=== PATIENT | female | born 1940 | race Caucasian/White ===

== ENCOUNTER → 2017-08-04 | Outpatient (CLI) | payer MEDICARE, MEDICAID ==
--- NOTE | 2017-08-04 15:56 | RADIOLOGY REPORT (SQ) ---
EXAM DESCRIPTION: CT LUNG CANCER SCREENING COMPLETED DATE/TIME: 08/04/2017 10:35 am REASON FOR STUDY: PERSONAL HISTORY OF NICOTINE DEPENDENCE J44.9 CHRONIC OBSTRUCTIVE PULMONARY DISEA SE, UNSPECIFIED Z87.891 PERSONAL HISTORY OF NICOTINE DEPENDENCE Has the patient had a Chest CT scan within the past year? No Was the patient offered tobacco cessation counseling? Yes Was the patient engaged in shared decision making for this test? Yes Does the patient have signs or symptoms of Lung Cancer? No Is the patient a smoker? Yes How many packs per year? 730 How many years since quitting smoking? Not applicable Patients age: 76 COMPARISON: None. TECHNIQUE: Low Dose CT scan performed of the chest without intravenous contrast for purposes of scre ening for lung cancer. Images reviewed with lung, soft tissue and bone windows. Reconstructed coron al and sagittal MPR images reviewed. All images stored on PACS. All CT scanners at this facility use dose modulation, iterative reconstruction, and/or weight based d osing when appropriate to reduce radiation dose to as low as reasonably achievable (ALARA). [facility]: Dose Right [facility]: CareDose [facility]: Dose Right [facility]: Teradose 4D [facility]: [employer] RADIATION DOSE: CT Rad equipment meets quality standard of care and radiation dose reduction techniq ues were employed. CTDIvol: 1.9 mGy. DLP: 74 mGy-cm. mGy. . LIMITATIONS: None FINDINGS: LUNGS AND PLEURA: Linear bandlike scarring in the right lung apex coronal image 5/509. Bandlike scarring along the right superior edge major fissure coronal image 70/509. 6 mm nodule left upper lobe, smooth round contour, best shown on axial image 205/509. Less than 5 mm subpleural nodule posterior right upper lobe axial image 121/509. No pleural effusions or calcifications. No pneumothorax. No scarring or interstitial changes. The re are enlarged airspaces from centrilobular emphysema HILAR AND MEDIASTINAL STRUCTURES: No identified masses. No abnormal nodes. HEART AND VASCULAR STRUCTURES: No aortic aneurysm. No pericardial effusion. No cardiac devices. CORONARY ARTERY CALCIFICATIONS: Mild to moderate calcifications. UPPER ABDOMEN, THYROID, BONES, OTHER SOFT TISSUES: Very heavily calcified upper abdominal aorta, ques tion significant stenosis inferior to the renal arteries. Vertebra plana deformities at T5 and L1. The L1 level there is greater than 50% central canal narrowing. IMPRESSION: Multiple benign-appearing findings in the lungs on non contrasted chest CT Significant atherosclerotic change in the upper abdominal aorta and coronary arteries LUNGRADS: LUNGRADS: 2, benign findings. MODIFIER: NONE RECOMMENDATION: Continue annual screening with LDCT in 12 months. COMMENT: CRITERIA: No lung nodules. Nodules with specific calcifications: Complete, central, popcorn, concentric rings and fat containin g nodules. TECHNICAL DOCUMENTATION: JOB ID: [id number] Quality ID # [id number]: Final reports with documentation of one or more dose reduction techniques (e.g., Au tomated exposure control, adjustment of the mA and/or kV according to patient size, use of iterative reconstruction technique) 2010 [employer] [facility]
== END ==
LOC: RAD 10:13
PROVIDERS: ATTEND Internal Medicine
DX: Z12.2 Encounter for screening for malignant neoplasm of respiratory organs (principal); Z87.891 Personal history of nicotine dependence; J44.9 Chronic obstructive pulmonary disease, unspecified
CPT/HCPCS: G0297

== ENCOUNTER → 2019-05-18 | Outpatient (CLI) | payer MEDICARE, MEDICAID ==
--- NOTE | 2019-05-19 09:29 | RADIOLOGY REPORT (SQ) ---
EXAM DESCRIPTION: CT LUNG CANCER SCREENING COMPLETED DATE/TIME: 05/18/2019 1:31 pm REASON FOR STUDY: ENCTR FOR SCREENING FOR LUNG CA. (Z12.2) Z87.891 PERSONAL HISTORY OF NICOTINE DEP ENDENCE Has the patient had a Chest CT scan within the past year? N Was the patient offered tobacco cessation counseling? Y Was the patient engaged in shared decision making for this test? Y Does the patient have signs or symptoms of Lung Cancer? N Is the patient a smoker? Y How many pack years? 50 How many years since quitting smoking? 0 Patients age: 78 COMPARISON: 08/04/2017 TECHNIQUE: Low Dose CT scan performed of the chest without intravenous contrast for purposes of scre ening for lung cancer. Images reviewed with lung, soft tissue and bone windows. Reconstructed coron al and sagittal MPR images reviewed. All images stored on PACS. All CT scanners at this facility use dose modulation, iterative reconstruction, and/or weight based d osing when appropriate to reduce radiation dose to as low as reasonably achievable (ALARA). [facility]: Dose Right [facility]: CareDose [facility]: Dose Right [facility]: Teradose 4D [facility]: [employer] RADIATION DOSE: mGy. . LIMITATIONS: No technical limitations. FINDINGS: LUNG NODULES: Description: Pleural-based nodule in the right upper lobe. Best demonstra rob on series 3, image 54 Size: 4.1 mm. This is stable from prior study. 5.1 mm nodule in the left upper lobe best demonstrated on series 3, image 1 L5. This is also unchanged. REMAINING LUNGS AND PLEURA: No pleural effusions or calcifications. No pneumothorax. Stable sca rring along the left major fissure. There is scarring in the right lung apex. There are bilateral e mphysematous changes. HILAR AND MEDIASTINAL STRUCTURES: Occasional small mediastinal node. No pathologic adenopathy. HEART AND VASCULAR STRUCTURES: No aortic aneurysm. No pericardial effusion. No cardiac devices. CORONARY ARTERY CALCIFICATIONS: Moderate coronary artery calcifications. UPPER ABDOMEN, THYROID, BONES, OTHER SOFT TISSUES: No significant findings. IMPRESSION: BENIGN FINDINGS IN THE LUNGS. BILATERAL EMPHYSEMATOUS CHANGES. LUNGRADS: LUNGRADS: 2 BENIGN APPEARANCE OR BEHAVIOR. NODULES WITH A VERY LOW LIKELIHOOD OF BECOMING A CLINICALLY ACTIVE CANCER DUE TO SIZE OR LACK OF GROWTH. MODIFIER: NONE. RECOMMENDATION: Continue annual screening with LDCT in 12 months. COMMENT: CRITERIA: Solid nodule(s): < 6 mm; new < 4 mm. Part solid nodule(s): < 6 mm total diameter on baseline screening. Non solid nodule(s) (GGN): < 20 mm OR ? 20 and unchanged or slowly growing. Category 3 or 4 modules unchanged for ? 3 months. TECHNICAL DOCUMENTATION: JOB ID: [id number] Quality ID # 436: Final reports with documentation of one or more dose reduction techniques (e.g., Au tomated exposure control, adjustment of the mA and/or kV according to patient size, use of iterative reconstruction technique) 2010 [facility] Reading location - IP/workstation name: [email or web address]-
== END ==
LOC: RAD 13:07
PROVIDERS: ATTEND Internal Medicine
DX: Z12.2 Encounter for screening for malignant neoplasm of respiratory organs (principal); I25.10 Atherosclerotic heart disease of native coronary artery without angina pectoris; Z87.891 Personal history of nicotine dependence; R91.8 Other nonspecific abnormal finding of lung field
CPT/HCPCS: G0297

== ENCOUNTER → 2019-05-20 | Outpatient (CLI) | payer MEDICARE, MEDICAID ==
--- NOTE | 2019-05-20 11:27 | WOMENS IMAGING REPORT ---
EXAM DESCRIPTION: BILAT DIAGNOSTIC MAMMO W/CAD; U/S BREAST UNILAT LIMITED COMPLETED DATE/TIME: 05/20/2019 10:30 am; 05/20/2019 10:54 am REASON FOR STUDY: N63.0 UNSPECIFIED LUMP IN UNSPECIFIED BREAST; N63.0 RIGHT BREAST N63.10 UNSPECIFI ED LUMP IN THE RIGHT BREAST, UNSPECIFIED PANCHO COMPARISON: None. EXAM PARAMETERS: Standard craniocaudal and mediolateral oblique views of each breast recorded using digital acquisition. True lateral and cone compression views right breast. Read with the assistance of CAD: .[facility] - R2 Clinical Research Specialist Version 9.2 LIMITATIONS: None. FINDINGS: RIGHT BREAST MASSES: No suspicious masses. CALCIFICATIONS: No new or suspicious calcifications. ARCHITECTURAL DISTORTION: None. ASYMMETRY: None noted. OTHER: No other significant findings. LEFT BREAST MASSES: No suspicious masses. CALCIFICATIONS: No new or suspicious calcifications. ARCHITECTURAL DISTORTION: None. ASYMMETRY: None noted. OTHER: No other significant finding. Ultrasound of the right breast was normal. IMPRESSION: No evidence of malignancy. BREAST DENSITY: b. There are scattered areas of fibroglandular density. BIRAD: ASSESSMENT: 1 Negative. RECOMMENDATION: RECOMMENDED FOLLOW UP: Birads 1 or 2: No breast imaging finding to explain the patie nt's presenting complaint. Further intervention should be based on the degree of clinical suspicion. SPECIFIC INTERVENTION/IMAGING/CONSULTATION RECOMMENDED:No additional intervention/ imaging/consultati on needed at this time. COMMUNICATION:The imaging findings were not discussed with the patient. Her referring provider has be en notified of the findings. COMMENT: The patient has been notified of the results by letter per SA requirements. Additional no tification policies are in place for contacting patient with suspicious or incomplete findings. Quality ID #225: The [employer] recommends an annual screening mammogram for women aged 40 years or over. This facility utilizes a reminder system to ensure that all patients receive reminder letters, and/or direct phone calls for appointments. This includes reminders for routine scr eening mammograms, diagnostic mammograms, or other Breast Imaging Interventions when appropriate. Th is patient will be placed in the appropriate reminder system. TECHNICAL DOCUMENTATION: FINDING NUMBER: (1) ASSESSMENT: (1) JOB ID: [id number] [employer]- All Rights Reserved Reading location - IP/workstation name: [email or web address]
--- NOTE | 2019-05-20 11:27 | WOMENS IMAGING REPORT ---
EXAM DESCRIPTION: BILAT DIAGNOSTIC MAMMO W/CAD; U/S BREAST UNILAT LIMITED COMPLETED DATE/TIME: 05/20/2019 10:30 am; 05/20/2019 10:54 am REASON FOR STUDY: N63.0 UNSPECIFIED LUMP IN UNSPECIFIED BREAST; N63.0 RIGHT BREAST N63.10 UNSPECIFI ED LUMP IN THE RIGHT BREAST, UNSPECIFIED PANCHO COMPARISON: None. EXAM PARAMETERS: Standard craniocaudal and mediolateral oblique views of each breast recorded using digital acquisition. True lateral and cone compression views right breast. Read with the assistance of CAD: .[facility] - R2 Intermediate Teacher Version 9.2 LIMITATIONS: None. FINDINGS: RIGHT BREAST MASSES: No suspicious masses. CALCIFICATIONS: No new or suspicious calcifications. ARCHITECTURAL DISTORTION: None. ASYMMETRY: None noted. OTHER: No other significant findings. LEFT BREAST MASSES: No suspicious masses. CALCIFICATIONS: No new or suspicious calcifications. ARCHITECTURAL DISTORTION: None. ASYMMETRY: None noted. OTHER: No other significant finding. Ultrasound of the right breast was normal. IMPRESSION: No evidence of malignancy. BREAST DENSITY: b. There are scattered areas of fibroglandular density. BIRAD: ASSESSMENT: 1 Negative. RECOMMENDATION: RECOMMENDED FOLLOW UP: Birads 1 or 2: No breast imaging finding to explain the patie nt's presenting complaint. Further intervention should be based on the degree of clinical suspicion. SPECIFIC INTERVENTION/IMAGING/CONSULTATION RECOMMENDED:No additional intervention/ imaging/consultati on needed at this time. COMMUNICATION:The imaging findings were not discussed with the patient. Her referring provider has be en notified of the findings. COMMENT: The patient has been notified of the results by letter per SA requirements. Additional no tification policies are in place for contacting patient with suspicious or incomplete findings. Quality ID #225: The [employer] recommends an annual screening mammogram for women aged 40 years or over. This facility utilizes a reminder system to ensure that all patients receive reminder letters, and/or direct phone calls for appointments. This includes reminders for routine scr eening mammograms, diagnostic mammograms, or other Breast Imaging Interventions when appropriate. Th is patient will be placed in the appropriate reminder system. TECHNICAL DOCUMENTATION: FINDING NUMBER: (1) ASSESSMENT: (1) JOB ID: [id number] [employer]- All Rights Reserved Reading location - IP/workstation name: [email or web address]
== END ==
LOC: WI 09:45
PROVIDERS: ATTEND Internal Medicine
DX: N63.10 Unspecified lump in the right breast, unspecified quadrant (principal)
CPT/HCPCS: 76642; 77066

== ENCOUNTER → 2019-05-27 | Outpatient (CLI) | payer MEDICARE, MEDICAID ==
--- NOTE | 2019-05-27 16:04 | WOMENS IMAGING REPORT ---
EXAM DESCRIPTION: RIGHT DIAGNOSTIC MAMMO W/CAD COMPLETED DATE/TIME: 05/27/2019 9:26 am REASON FOR STUDY: N63.11 N63.11 UNSPECIFIED LUMP IN THE RIGHT BREAST, UPPER OUTER PANCHO COMPARISON: Diagnostic mammograms and ultrasound 05/20/2019 EXAM PARAMETERS: Standard craniocaudal and mediolateral oblique images of the breast recorded with d igital acquisition. Patient had an outpatient ultrasound-guided biopsy by Dr. Chantel Reynolds for a palpable abnormality. Read with the assistance of CAD. .[facility] - R2 Instructor Creeler Version 9.2 LIMITATIONS: None. FINDINGS: BREAST LATERALITY: Right MASSES: In the right breast laterally caps, about 3 cm from the nipple, a spiculated mammographic mas s is present with a biopsy clip present. CALCIFICATIONS: No new or suspicious calcifications. ARCHITECTURAL DISTORTION: None. ASYMMETRY: None noted. OTHER: No other significant findings. IMPRESSION: Biopsy clip is now present in a spiculated mass right breast retroareolar region lateral ly. 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 The breasts are heterogeneously dense, which may obscure small masses. BIRAD: ASSESSMENT: 6 Known biopsy-proven malignancy. Surgical excision when clinically appropriate. RECOMMENDATION: RECOMMENDED FOLLOW UP: As per Dr. Reynolds SPECIFIC INTERVENTION/IMAGING/CONSULTATION RECOMMENDED:As per Dr Reynolds COMMUNICATION:Patient notified by letter COMMENT: The patient has been notified of the results by letter per MQSA requirements. Additional no tification policies are in place for contacting patient with suspicious or incomplete findings. Quality ID #225: The [employer] recommends an annual screening mammogram for women aged 40 years or over. This facility utilizes a reminder system to ensure that all patients receive reminder letters, and/or direct phone calls for appointments. This includes reminders for routine scr eening mammograms, diagnostic mammograms, or other Breast Imaging Interventions when appropriate. Th is patient will be placed in the appropriate reminder system. TECHNICAL DOCUMENTATION: FINDING NUMBER: (1) ASSESSMENT: (1) JOB ID: [id number] [employer]- All Rights Reserved Reading location - IP/workstation name: [email or web address]
== END ==
LOC: WI 09:25
PROVIDERS: ATTEND Surgery
DX: N63.11 Unspecified lump in the right breast, upper outer quadrant (principal)
CPT/HCPCS: 77065

== ENCOUNTER → 2019-06-25 | Outpatient (CLI) | payer MEDICARE, MEDICAID ==
--- NOTE | 2019-06-25 08:19 | WOMENS IMAGING REPORT ---
EXAM DESCRIPTION: BONE DENSITY HIP/SPINE COMPLETED DATE/TIME: 06/25/2019 8:06 am REASON FOR STUDY: M81.0 BONE DENSITY M81.0 AGE-RELATED OSTEOPOROSIS W/O CURRENT PATHOLOGICAL FRAC COMPARISON: None. TECHNIQUE: Dual-Energy X-ray Absorptiometry (DEXA) of the AP Spine and Hip. LIMITATIONS: None. FINDINGS: LUMBAR SPINE: The bone mineral density (BMD) measured from L1-L4 in the AP projection correlates with a T-score of -0.3, which is normal as defined by the World Health Organization. HIP: The bone mineral density (BMD) measured in the left hip correlates with a T-score of -1.6, which is o steopenia as defined by the World Health Organization. IMPRESSION: 1. LUMBAR SPINE: NORMAL. 2. HIP: OSTEOPENIA. COMMENT: The World Health Organization defines low BMD as follows: T-score: Normal: Greater than -1.0 Osteopenia: Between -1.0 and -2.5 Osteoporosis: Less than -2.5 without fractures Established osteoporosis: Less than -2.5 with fractures In general, you may wish to consider: Diagnosis Treatment Follow-up DEXA Normal BMD Prevention 2-3 years Osteopenia Prevention/Therapy 1-2 years Osteoporosis Therapy Yearly TECHNICAL DOCUMENTATION: JOB ID: [id number] [employer]- All Rights Reserved Reading location - IP/workstation name: [email or web address]
== END ==
LOC: WI 07:40
PROVIDERS: ATTEND Internal Medicine
DX: M81.0 Age-related osteoporosis without current pathological fracture (principal)
CPT/HCPCS: 77080

== ENCOUNTER → 2019-07-02 | Outpatient (CLI) | payer MEDICARE, MEDICAID ==
--- NOTE | 2019-07-02 09:27 | RADIOLOGY REPORT (SQ) ---
EXAM DESCRIPTION: CT CHEST WITH COMPLETED DATE/TIME: 07/02/2019 8:28 am REASON FOR STUDY: BREAST CA (C50.311) C50.311 MALIG NEOPLM OF LOWER-INNER QUADRANT OF RIGHT FEMALE COMPARISON: CT of the chest without contrast from 05/18/2019. TECHNIQUE: CT scan of the chest performed using helical scanning technique with dynamic intravenous contrast injection. Images reviewed with lung, soft tissue and bone windows. Reconstructed coronal and sagittal MPR and MIP images reviewed. All images stored on PACS. All CT scanners at this facility use dose modulation, iterative reconstruction, and/or weight based d osing when appropriate to reduce radiation dose to as low as reasonably achievable (ALARA). [facility]: Dose Right [facility]: CareDose [facility]: Dose Right [facility]: Teradose 4D [facility]: Closely CONTRAST TYPE AND DOSE: 41 mL Omnipaque 350- low osmolar. RENAL FUNCTION: Creatinine 0.4 milligrams/deciliter RADIATION DOSE: DLP 548.78 mGy cm. LIMITATIONS: None FINDINGS: LUNGS AND PLEURA: There is severe centrilobular emphysema. There is an new pulmonary cavi ty in the superior segment of the right lower lobe (image 63 of series 6) that measures approximately 2.8 cm in AP diameter and 1.8 cm in transverse diameter and is associated with thickening of the int erlobular septa and adjacent pleura. The parenchymal band in the right upper lobe is unchanged. The re is no consolidation, ground-glass opacification, pleural effusion or nodule. HILAR AND MEDIASTINAL STRUCTURES: No mediastinal or hilar adenopathy. HEART AND VASCULAR STRUCTURES: The ascending thoracic aorta measures 3.5 x 3.5 cm (transverse x AP di ameters). There is dense atherosclerotic calcification of the thoracic aorta without aneurysm or dis section. The heart is normal in size. There is severe atherosclerotic calcification of the coronary arteries and mitral annulus. There is no pericardial effusion. The pulmonary arteries are prominen t and measure up to 2.6 cm in transverse - correlate clinically for pulmonary hypertension. There ar e no filling defects within the main, right and left pulmonary arteries. HARDWARE: None in the chest. UPPER ABDOMEN: Refer to the separate report of the CT of the abdomen. THYROID AND OTHER SOFT TISSUES: The patient is status post right mastectomy and axillary lymph node d issection. There is a postoperative collection in the anterior right hemithorax that measures up to 4.3 x 1 cm (transverse x AP). There are lymph nodes in the right axilla posterior to the surgical cl ips that measure 10 x 4 mm ; there are also lymph nodes in the left axilla that measure up to 12 x 8 mm. There is no enlarged supraclavicular adenopathy. The lobes of the thyroid gland are homogeneous . BONES: There are chronic compression fractures of the T5, T8, T12, L1, L2 and L3 vertebral bodies ; t he L1 fracture is associated with retropulsion of the posterior fragment into the spinal canal and fo cedric kyphotic angulation of the thoracolumbar spine. There is no acute fracture or osteolytic/osteobl astic osseous lesion. OTHER: No other finding. IMPRESSION: 1. New pulmonary cavity in the superior segment of the right lower lobe (image 63 of se joelle 6) that is associated with thickening of the interlobular septae in adjacent pleural. The etiol ogies for pulmonary cavities include cancer including cavitary pulmonary metastases, granulomas from an autoimmune process, bland and septic pulmonary emboli and infection including pulmonary tuberculos is. Correlation with clinical findings and a follow-up CT in 3 to 6 months is recommended. 2. Status post right mastectomy with a postoperative collection at the mastectomy site that measures up to 4.3 x 1 cm. There are lymph nodes in the right axilla posterior to the surgical clips that m easure 10 x 4 mm ; there are also lymph nodes in the left axilla at that measure up to 12 x 8 mm. Th ere is no supraclavicular or mediastinal/thoracic adenopathy. 3. Chronic compression fractures of the T5, T8, T12, L1, L2 and L3 vertebral bodies as detailed abov e. There is no acute fracture or osteolytic/osteoblastic osseous lesion on CT and correlation with th e finding on the Bone Scan is recommended to excluded osseous metastases. TECHNICAL DOCUMENTATION: JOB ID: [id number] Quality ID # [id number]: Final reports with documentation of one or more dose reduction techniques (e.g., Au tomated exposure control, adjustment of the mA and/or kV according to patient size, use of iterative reconstruction technique) 2010 [employer]- All Rights Reserved Reading location - IP/workstation name: [email or web address]
--- NOTE | 2019-07-02 09:52 | RADIOLOGY REPORT (SQ) ---
EXAM DESCRIPTION: CT ABD/PELVIS WITH IV ONLY COMPLETED DATE/TIME: 07/02/2019 8:28 am REASON FOR STUDY: BREAST CA (C50.311) C50.311 MALIG NEOPLM OF LOWER-INNER QUADRANT OF RIGHT FEMALE COMPARISON: None. TECHNIQUE: CT scan of the abdomen and pelvis performed using helical scanning technique with dynamic intravenous contrast injection. No oral contrast. Images reviewed with lung, soft tissue, and bone windows. Reconstructed coronal and sagittal MPR images reviewed. Delayed images for evaluation of the urinary system also acquired. All images stored on PACS. All CT scanners at this facility use dose modulation, iterative reconstruction, and/or weight based d osing when appropriate to reduce radiation dose to as low as reasonably achievable (ALARA). [facility]: Dose Right [facility]: CareDose [facility]: Dose Right [facility]: Teradose 4D [facility]: [employer] CONTRAST TYPE AND DOSE: Contrast/concentration: Isovue 350.00 mg/ml; Total Contrast Delivered: 41.0 ml; Total Saline Delivered: 65.0 ml RENAL FUNCTION: Creatinine 0.4 milligrams/deciliter. RADIATION DOSE: CT Rad equipment meets quality standard of care and radiation dose reduction techniq ues were employed. CTDIvol: 4.4 - 4.5 mGy. DLP: 549 mGy-cm. LIMITATIONS: None. FINDINGS: LOWER CHEST: Refer to the separate report of the CT of the chest. LIVER: The morphology of the liver is non cirrhotic. There are several hypodense lesions in the live r that measure up to 1.8 x 1.5 cm ; the aforementioned 1.8 x 1.5 cm in segment 6 of the liver (image 26 of series 3) and the 1.2 x 1 cm lesion in segment 5 (image 28 of series 3) measure water attenuati on and could represent cysts ; the other subcentimeter lesions in segment 3 (image 18 of series 3), s egment 5 (image 24 of series 3) and segment 4B (image 19 of series 3) could also represent cysts burnham jonathan evaluation of these lesions is limited due to size. The portal veins are patent. There is mild dilatation of the intrahepatic ducts at the alexy hepatis. SPLEEN: No splenomegaly or splenic mass. PANCREAS: No acute abnormality. GALLBLADDER: Cholelithiasis. There is a 6 x 4 mm calculus within the CBD upstream of the ampulla (im age 26 of series 3 and 40 of series 604). The proximal CBD is prominent and it measures up to 5 mm i n diameter. ADRENAL GLANDS: No mass or asymmetry. RIGHT KIDNEY AND URETER: No solid masses. No calcifications. No hydronephrosis or hydroureter. LEFT KIDNEY AND URETER: No solid masses. No calcifications. No hydronephrosis or hydroureter. AORTA AND VESSELS: Dense atherosclerotic calcification of the abdominal aorta and iliac arteries with out aneurysm or dissection; there are suspected stenoses of the proximal SMA, left renal artery and b oth common iliac arteries. The left gonadal vein is enlarged and there are prominent parametrial ves sels on the left side; these findings are nonspecific but are typical in the setting of pelvic conges tion syndrome. RETROPERITONEUM: No retroperitoneal adenopathy, hemorrhage or mass. BOWEL AND PERITONEAL CAVITY: No bowel obstruction, bowel wall thickening, or pericolonic/ perienteric inflammation. No mesenteric adenopathy, free and extraperitoneal fluid, or mesenteric/ omental infl ammation. APPENDIX: Unable to visualize the appendix. PELVIS: No gross abnormality. ABDOMINAL WALL: Mild anasarca. BONES: Osteopenia with chronic fracture deformities of the L1, L2 and L3 vertebral bodies. There is no acute fracture or osteolytic/ osteoblastic lesion. OTHER: Diverticulosis without diverticulitis. IMPRESSION: 1. Choledocholithiasis with mild upstream dilatation of the intra- and extrahepatic sarath e ducts. Correlate clinically with serum alkaline phosphatase to determine the need for further eval uation/intervention. 2. Hypodense hepatic lesions that measure up to 1.8 x 1.5 cm; as described above, based on the inter nal attenuation of the dominant lesions in segments 6 and 5 of the liver the favored differential con sideration is hepatic cysts - continued attention on follow-up CTs is recommended. 3. Other secondary findings as detailed above. TECHNICAL DOCUMENTATION: JOB ID: [id number] Quality ID # [id number]: Final reports with documentation of one or more dose reduction techniques (e.g., Au tomated exposure control, adjustment of the mA and/or kV according to patient size, use of iterative reconstruction technique) 2010 [employer]- All Rights Reserved Reading location - IP/workstation name: [email or web address]
--- NOTE | 2019-07-05 08:33 | RADIOLOGY REPORT (SQ) ---
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 The route of agent administration: Intravenous. ADDITIONAL DRUGS AND DOSES: None. TECHNIQUE: Routine delayed images at 3 hours post radionuclide injection acquired of the bony skelet on including anterior and posterior whole-body projections and additional focused images as needed. LIMITATIONS: None. FINDINGS: BONES: Focal increased uptake is present along the right medial clavicle left sternoclavic ular joint, correlating with a healing fracture on CT exam 07/02/2019. This is new compared to prior CT chest 05/18/2019. Patient has a T5 compression deformity without metabolically increased uptake on bone scan. Mild increased uptake is present along sclerotic vertebral body compression fractures at T8, T12, and L1. There is activity over the left ischium, likely contamination on patient's skin from urine. Bones ap pear to be intact on CT exam 07/02/2019. KIDNEYS: Symmetric excretion without obstruction. OTHER: No other significant finding. IMPRESSION: Healing subacute fracture medial right clavicle at the sternoclavicular joint Mild of uptake in subacute to chronic appearing thoracic and lumbar compression deformities Probable contamination from urinary activity over the left ischium soft tissues COMMENT: Quality measure 147: Current bone scan is compared with any available plain radiographs, p rior bone scans, and CT/MRI. TECHNICAL DOCUMENTATION: JOB ID: [id number]- All Rights Reserved Reading location - IP/workstation name: [email or web address]
== END ==
LOC: RAD 07:39
PROVIDERS: ATTEND Internal Medicine
DX: C50.311 Malignant neoplasm of lower-inner quadrant of right female breast (principal); C78.01 Secondary malignant neoplasm of right lung; M48.55XD Collapsed vertebra, not elsewhere classified, thoracolumbar region, subsequent encounter for fracture with routine healing; J43.2 Centrilobular emphysema; K80.50 Calculus of bile duct without cholangitis or cholecystitis without obstruction
CPT/HCPCS: 82565; 78306; 71260; 74177; A9561; Q9969

== ENCOUNTER 2019-08-22 18:05 | Emergency (ER) | payer MEDICARE, MEDICAID ==
[2019-08-22] MEDS ORDERED: ONDANSETRON HCL INJ/PF 4 MG/2 ML SDV IV ONE (18:12)
[2019-08-22 18:39] LABS: ABSOLUTE BASOPHILS # (AUTO) 0.1 10^3/uL (0.0-0.2); ABSOLUTE EOSINOPHILS # (AUTO) 0.1 10^3/uL (0.0-0.6); ABSOLUTE MONOCYTES (AUTO) 0.8 10^3/uL (0.1-1.4); ABSOLUTE NEUT (AUTO) 4.9 10^3/uL (1.7-8.2); EOSINOPHILS % (AUTO) 1.2 % (0-6); HEMATOCRIT 31.2 % (36.0-47.0); HEMOGLOBIN 10.9 g/dL (12.0-15.5); LYMPHOCYTES % (AUTO) 14.2 % (13-45); MEAN CORPUSCULAR HEMOGLOBIN 36.9 pg (27.0-33.4); MEAN CORPUSCULAR HGB CONC 34.8 g/dL (32.0-36.0); MEAN CORPUSCULAR VOLUME 106 fl (80-97); MONOCYTES % (AUTO) 11.5 % (3-13); PLATELET COUNT 429 10^3/uL (150-450); RED BLOOD COUNT 2.95 10^6/uL (3.72-5.28); RED CELL DISTRIBUTION WIDTH 23.7 % (11.5-14.0); SEGMENTED NEUTROPHILS % (AUTO) 72.1 % (42-78); TOTAL CELLS COUNTED % (AUTO) 100 %; WHITE BLOOD COUNT 6.7 10^3/uL (4.0-10.5)
[2019-08-22 18:55] LABS: APPEARANCE,URINE CLEAR; BILIRUBIN,URINE NEGATIVE (NEGATIVE); COLOR,URINE YELLOW; GLUCOSE, URINE NEGATIVE (NEGATIVE); KETONES,URINE 20 mg/dL (NEGATIVE); LEUKOCYTE ESTERASE,URINE NEGATIVE (NEGATIVE); NITRITE,URINE NEGATIVE (NEGATIVE); PROTEIN,URINE NEGATIVE (NEGATIVE); URINE SPECIFIC GRAVITY 1.011
[2019-08-22 18:56] LABS: ALBUMIN 3.7 g/dL (3.5-5.0); ALKALINE PHOSPHATASE 60 U/L (38-126); ANION GAP 9 (5-19); ASPARTATE AMINO TRANSFERASE 28 U/L (14-36); BILIRUBIN,DIRECT 0.3 mg/dL (0.0-0.4); BLOOD UREA NITROGEN 12 mg/dL (7-20); CALCIUM 8.8 mg/dL (8.4-10.2); CARBON DIOXIDE 29 mmol/L (22-30); CHLORIDE 88 mmol/L (98-107); GLUCOSE 97 mg/dL (75-110); TOTAL PROTEIN 7.6 g/dL (6.3-8.2)
[2019-08-22 18:58] LABS: ANISOCYTOSIS 3+; OVALOCYTES SLIGHT; PLATELET COMMENT ADEQUATE; POIKILOCYTOSIS 1+; TARGET CELLS 1+
--- NOTE | 2019-08-22 20:18 | ER Document Report ---
ED General - General Chief Complaint: Altered Mental Status Stated Complaint: VOMITING/CONFUSION Time Seen by Provider: 08/22/19 19:43 Primary Care Provider: SYDNEY CHEN MD [Primary Care Provider] - Follow up as needed Information source: Patient, Relative Notes: This 78-year-old woman presents to the emergency department with a history of poor intake for the past few days and confusion. According to daughter she was very confused earlier today and not acting like her normal self. She had some no focal neurologic findings and appeared to be clinically dry. She had lab work done and was given 1 L of IV fluids. Apparently the patient is now markedly improved and stated that she is ready to go home. I have explained to the patient and daughter that I will review the lab, and other tests and if they are stable we will make a disposition. They seem to understand that plan. TRAVEL OUTSIDE OF THE [place] IN LAST 30 DAYS: No Past Medical History - General Information source: Patient - Social History Smoking Status: Former Smoker Family History: Reviewed & Not Pertinent Patient has suicidal ideation: No Patient has homicidal ideation: No Pulmonary Medical History: Reports: Hx COPD Malignancy Medical History: Reports: Hx Breast Cancer Review of Systems - Review of Systems Notes: Constitutional: Negative for fever. HENT: Negative for sore throat. Eyes: Negative for visual changes. Cardiovascular: Negative for chest pain. Respiratory: Negative for shortness of breath. Gastrointestinal: Negative for abdominal pain, vomiting or diarrhea. Genitourinary: Negative for dysuria. Musculoskeletal: Negative for back pain. Skin: Negative for rash. Neurological: + Episodic confusion 10 point ROS negative except as marked above and in HPI. Physical Exam - Vital signs Vitals: Resp Pulse Ox 23 H 93 08/22/19 18:09 08/22/19 18:09 - Notes Notes: PHYSICAL EXAMINATION: Physical Exam: General: Frail elderly female in no acute distress HEENT: NC/AT, pupils equal round and reactive to light, MM moist,nares clear, oropharynx Neck: supple, no adenopathy, no masses. Lungs: clear, no wheezing, no rales no rhonchi CVS: Regular, rate, and rhythm no murmur gallop or rub Abdomen: Soft, active, nontender, no masses, no hepatosplenomegaly Ext: No edema clubbing or cyanosis. Neuro: Alert and responsive, moving all 4 extremities on command, cranial nerves intact. Skin: Intact no open lesions, no rash PSYCH: Normal mood, normal affect. Course - Re-evaluation Re-evalutation: 08/22/19 20:25 Patient was given normal saline with a significant improvement of her symptoms. Sodium is low, 125, I have no comparison labs to correlate timeframe around change. She is adamant that she is going home and ready to go. - Vital Signs Vital signs: Temp Pulse Resp BP Pulse Ox 22 H 154/68 H 92 08/22/19 19:01 08/22/19 19:01 08/22/19 19:01 - Laboratory Result Diagrams: 08/22/19 18:18 08/22/19 18:18 Laboratory results interpreted by me: 08/22/19 08/22/19 08/22/19 15:30 18:18 18:18 RBC 2.95 L Hgb 10.9 L Hct 31.2 L MCV 106 H MCH 36.9 H RDW 23.7 H Sodium 125.8 L Chloride 88 L Creatinine 0.23 L Urine Ketones 20 H Urine Urobilinogen 2.0 H Discharge - Discharge Clinical Impression: Confusion, Dehydration, Low sodium levels Condition: Good Disposition: HOME, SELF-CARE Instructions: Dehydration ([facility]), Hyponatremia ([facility]) Additional Instructions: You were tonight noticed with confusion associated with dehydration tonight in the emergency department. Please increase your fluid intake. Also may use Gatorade or other fluids with electrolytes. Please follow-up with your primary doctor for repeat sodium level and reassessment of the confusion as needed. If the symptoms are recurring or concerning you may return to the emergency department for further evaluation and treatment. Referrals: SYDNEY CHEN MD [Primary Care Provider] - Follow up as needed
--- NOTE | 2019-08-22 20:34 | EKG REPORT ---
SEVERITY:- ABNORMAL ECG - SINUS RHYTHM PROBABLE LEFT ATRIAL ABNORMALITY PROBABLE LEFT VENTRICULAR HYPERTROPHY : Confirmed by: Antonieta Zelaya MD 22-Aug-2019 20:32:34
[2019-08-22 20:53] VITALS: BP 144/65
== END 2019-08-22 20:50 | disposition home or self-care (01) ==
LOC: ER 18:05
DX: E86.0 Dehydration (principal); R41.0 Disorientation, unspecified; J44.9 Chronic obstructive pulmonary disease, unspecified; Z87.891 Personal history of nicotine dependence; Z85.3 Personal history of malignant neoplasm of breast
CPT/HCPCS: 36415; 80053; 81001; 85025; 93005; 93010; 99285

== ENCOUNTER → 2019-09-15 | Outpatient (CLI) | payer MEDICARE, MEDICAID ==
--- NOTE | 2019-09-15 12:19 | RADIOLOGY REPORT (SQ) ---
EXAM DESCRIPTION: U/S ABDOMEN LIMITED W/O DOP COMPLETED DATE/TIME: 09/15/2019 11:32 am REASON FOR STUDY: ELEVATED LFT (R94.5) R94.5 ABNORMAL RESULTS OF LIVER FUNCTION STUDIES COMPARISON: CT abdomen pelvis 07/02/2019 TECHNIQUE: Dynamic and static grayscale images acquired of the abdomen and recorded on PACS. Additio nal selected color Doppler and spectral images recorded. LIMITATIONS: Midline bowel gas FINDINGS: PANCREAS: Not well visualized LIVER: No masses. Echotexture normal. 1.2 cm cyst left lobe liver LIVER VASCULATURE: Normal directional flow of the main portal vein and hepatic veins. GALLBLADDER: Multiple shadowing stones are present in the gallbladder without gallbladder wall thicke suri or pericholecystic fluid. ULTRASOUND-DETECTED HOFFMANN'S SIGN: Positive sonographic Hoffmann sign INTRAHEPATIC DUCTS AND COMMON DUCT: Prior CT exam 07/02/2019 demonstrated choledocholithiasis on the coronal reconstructions. Common bile duct at the alexy hepatis is 3 to 4 mm in diameter. Distal mos t common duct not well seen. INFERIOR VENA CAVA: Normal flow. AORTA: No aneurysm. RIGHT KIDNEY: Normal size. Normal echogenicity. No solid or suspicious masses. No hydronephrosis. No calcifications. PERITONEAL AND RIGHT PLEURAL SPACE: No ascites or effusions. OTHER: No other significant findings. IMPRESSION: Stones in the gallbladder. Positive sonographic Hoffmann's sign without gallbladder wall thickening or pericholecystic fluid Distal common duct not well seen today. Prior CT exam 07/02/2019 demonstrated common bile duct stone s No intrahepatic biliary ductal dilatation TECHNICAL DOCUMENTATION: JOB ID: [id number] 2010 [employer]- All Rights Reserved Reading location - IP/workstation name: [email or web address]
== END ==
LOC: RAD 11:09
PROVIDERS: ATTEND Internal Medicine
DX: R94.5 Abnormal results of liver function studies (principal); K80.20 Calculus of gallbladder without cholecystitis without obstruction
CPT/HCPCS: 76705